=== PATIENT | female | born 1985 | race Two or more races ===

== ENCOUNTER 2024-12-01 19:03 | Emergency (ER) | payer OTHER, MEDICAID ==
[~2024-12-01] VITALS: Ht 160 cm; Wt 75.7 kg
[2024-12-01] MEDS ORDERED: HYDROCODONE/APAP 5/325MG TABLET ONE (23:50)
[2024-12-01] MEDS: HYDROCODONE/APAP 5/325MG TABLET PO ONE (23:53)
[2024-12-02] MEDS ORDERED: IBUP-1957 PO (00:55)
[2024-12-02 01:16] VITALS: BP 100/78; TEMP 98; O2SAT 98
== END 2024-12-02 01:05 | disposition home or self-care (01) ==
LOC: ER 19:18
DX: M77.12 Lateral epicondylitis, left elbow (principal); Z79.1 Long term (current) use of non-steroidal anti-inflammatories (NSAID); V43.52XA Car driver injured in collision with other type car in traffic accident, initial encounter; Y93.89 Activity, other specified; Y92.488 Other paved roadways as the place of occurrence of the external cause; Y99.8 Other external cause status
CPT/HCPCS: 73030-TC; 73090-TC